=== PATIENT | male | born 1965 | race Two or more races ===

== ENCOUNTER 2023-03-03 08:23 | Emergency (ER) | payer OTHER ==
[~2023-03-03] VITALS: Ht 167.6 cm; Wt 70.3 kg
[2023-03-03 09:28] LABS: HEMATOCRIT 40.4 % (39.0-48.0); HEMOGLOBIN 13.9 g/dL (13-16.00); MEAN CELL VOLUME 91.9 fL (80.0-100.00); MEAN CORPUSCULAR HEMOGLOBIN 31.7 pg (27.00-32.0); MEAN CORPUSCULAR HGB CONC 34.5 g/dl (32.0-36.0); PLATELET COUNT 262 K/uL (150-450); RED CELL DISTRIBUTION WIDTH 13.6 % (11.5-14.5)
[2023-03-03 10:02] LABS: ALBUMIN 4.2 gm/dL (3.4-5.0); BILIRUBIN TOTAL 0.53 mg/dL (0.3-1.2); CALCIUM 9.4 mg/dL (8.5-10.1); CREATININE SERUM 1.05 mg/dL (0.70-1.30); GFR 73.06; GLOBULINA 3.3 G/DL (2.4-3.5); POTASSIUM 4.94 mEq/L (3.5-5.1); TOTAL PROTEIN 7.5 gm/dL (6.4-8.2)
== END 2023-03-03 12:46 | disposition home or self-care (01) ==
LOC: ER
PROVIDERS: General Practice
DX: R21 Rash and other nonspecific skin eruption (principal)